=== PATIENT | male | born 1955 | race African-American/Black ===

== ENCOUNTER → 2016-06-13 | Outpatient (CLI) | payer OTHER ==
--- NOTE | ~2016-06-13 | US84 ---
[id number] [facility] [address] [place], [place] [address] [id number] O MR#: [id number] Acc #: [id number] NAME: ADRIAN YANG : 1955 SEX: M STUDY DATE/TIME: 06/13/2016 9:18 UNIT: [facility] ROOM: STUDY DESCRIPTION: US LE Veins Complete Marc Stdy Attending Physician: Dm Payton M.D. Referring Physician: Dm Payton M.D. Ordering Physician: Dm Payton M.D. Primary Care Physician: Rayo Rothman M.D. MEDICAL IMAGING REPORT This report is preliminary unless electronic signature is present EXAM Bilateral lower extremity venous duplex 06/13/2016 HISTORY Bilateral lower extremity pain for 2 weeks. Evaluate for deep vein thrombosis. TECHNIQUE Venous ultrasound examination of both lower extremities was performed using grayscale, spectral Doppler and color flow Doppler imaging. FINDINGS The examination is negative. There is no evidence of deep venous thrombus from the groin to the lower calf bilaterally. Visualized greater saphenous veins are also patent. IMPRESSION Negative examination. No evidence of lower extremity deep venous thrombosis. Dictated by... Jasvir Bradford M.D. THIS IS AN ELECTRONICALLY VERIFIED REPORT Jasvir Bradford M.D. at 06/13/2016 5:48 PM RENE/irene TD: 06/13/2016 13:37 JOB #: [id number] MEDICAL IMAGING REPORT COPY
== END | disposition home or self-care (01) ==
LOC: CNIV 08:42
DX: I82.409 Acute embolism and thrombosis of unspecified deep veins of unspecified lower extremity (principal)
CPT/HCPCS: 93970